=== PATIENT | male | born 1950 | race African-American/Black ===

== ENCOUNTER 2024-01-25 17:31 | Emergency (ER) | payer MEDICARE ==
[~2024-01-25] VITALS: Ht 175.3 cm; Wt 75.0 kg
[2024-01-25 17:37] VITALS: O2SAT 97
[2024-01-25 19:44] VITALS: BP 144/65; PULSE 66; RESP 19; TEMP 98.1
[2024-01-25] MEDS: TETANUS, DIPHTHERIA, PERTUSSIS VAC/PF 0.5ML (>10YR OLD) IM ONE (19:44)
== END 2024-01-25 19:49 | disposition home or self-care (01) ==
LOC: ER 17:31
DX: S01.01XA Laceration without foreign body of scalp, initial encounter (principal); I10 Essential (primary) hypertension; X58.XXXA Exposure to other specified factors, initial encounter; Y93.89 Activity, other specified; Y92.89 Other specified places as the place of occurrence of the external cause; Y99.8 Other external cause status
CPT/HCPCS: 12001; 90471; 90715; 99284; 99285

== ENCOUNTER 2024-02-04 15:07 | Emergency (ER) | payer MEDICARE ==
[~2024-02-04] VITALS: Ht 172.7 cm; Wt 78.9 kg
[2024-02-04 15:17] VITALS: BP 131/77; PULSE 68; RESP 16; TEMP 98.2; O2SAT 100
== END 2024-02-04 15:40 | disposition home or self-care (01) ==
LOC: ER 15:07
DX: S01.01XD Laceration without foreign body of scalp, subsequent encounter (principal); I10 Essential (primary) hypertension; X58.XXXD Exposure to other specified factors, subsequent encounter
CPT/HCPCS: 99281